=== PATIENT | female | born 1985 ===

== ENCOUNTER 2017-05-27 19:46 | Emergency (ER) | payer OTHER, SELFPAY ==
[2017-05-27 19:46] VITALS: BMI 36.6
[2017-05-27 20:10] VITALS: BP 155/87; PULSE 68; RESP 16; TEMP 98.4; O2SAT 100
--- NOTE | 2017-05-27 20:40 | ED PDOC ---
HPI: Skin/Bite Injury Time Seen by Provider: 05/27/17 20:12 Chief Complaint (Nursing): Abnormal Skin Integrity Chief Complaint (Provider): Rash History Per: Patient, Director Of Casework ([place] Citizen Interpretor at bedside) Onset/Duration Of Symptoms: Days (x1 week) Current Symptoms Are (Timing): Still Present Location Of Injury: Posterior: Back (Lower back) Additional Complaint(s): Tika Bañuelos is a 32 year old female who presents to the emergency department complaining of a painful rash to right buttocks that she noticed 3 days ago. Rash was preceded by a week of itchiness and pain to same area. She denies any fever or chills. No recent travel or known sick contacts. PMD: Rolo Garcia Past Medical History Reviewed: Historical Data, Nursing Documentation, Vital Signs Vital Signs: Last Vital Signs Temp 98.4 F 05/27/17 20:06 Pulse 68 05/27/17 20:06 Resp 16 05/27/17 20:06 BP 155/87 H 05/27/17 20:06 Pulse Ox 100 05/27/17 20:45 - Medical History PMH: HTN, Hypercholesterolemia, Hyperlipidemia - Surgical History Surgical History: Cholecystectomy - Family History Family History: States: No Known Family Hx - Living Arrangements Living Arrangements: With Family - Social History Current smoker - smoking cessation education provided: No Alcohol: Social Drugs: Denies - Home Medications Home Medications: Ambulatory Orders Medication Instructions Recorded Albuterol HFA [Ventolin HFA 90 2 puff IH [id number] PRN #1 pkg 01/13/16 mcg/actuation (8 g)] Famotidine [Pepcid] 40 mg PO DAILY #10 tab 01/13/16 Ibuprofen [Motrin Tab] 800 mg PO Q8 PRN #20 tab 05/27/17 valACYclovir [Valtrex] 1 gm PO TID #21 tab 05/27/17 - Allergies Allergies/Adverse Reactions: Allergies Allergy/AdvReac Type Severity Reaction Status Date / Time No Known Allergies Allergy Verified 05/27/17 20:06 Review of Systems ROS Statement: Except As Marked, All Systems Reviewed And Found Negative Constitutional: Negative for: Fever, Chills Skin: Positive for: Rash (to right buttocks x 3 days) Physical Exam - Reviewed Nursing Documentation Reviewed: Yes Vital Signs Reviewed: Yes - Physical Exam Appears: Positive for: Well, Non-toxic, No Acute Distress Head Exam: Positive for: ATRAUMATIC, NORMAL INSPECTION, NORMOCEPHALIC Skin: Positive for: Normal Color, Warm, Dry, Rash (herpetic, vesicular rash to right buttocks, appearance consistent with herpes zoster) Eye Exam: Positive for: Normal appearance Cardiovascular/Chest: Positive for: Regular Rate, Rhythm Respiratory: Positive for: Normal Breath Sounds Neurologic/Psych: Positive for: Alert, Oriented - Laboratory Results Urine POC: Negative - ECG O2 Sat by Pulse Oximetry: 100 (RA) Pulse Ox Interpretation: Normal Medical Decision Making Medical Decision Making: Initial Impression: 32 year old female with shingles Initial Plan: --Urine --Motrin Tab 600 mg PO --Prescriptions given for Motrin and Valtrex. Patient was advised to avoid any topical creams and keep area clean and dry. Advise follow-up with primary doctor in 2-3 days. Scribe Attestation: Documented by Shai Perez, acting as a scribe for Meaghan COELHO. Provider Scribe Attestation: All medical record entries made by the Scribe were at my direction and personally dictated by me. I have reviewed the chart and agree that the record accurately reflects my personal performance of the history, physical exam, medical decision making, and the department course for this patient. I have also personally directed, reviewed, and agree with the discharge instructions and disposition. Disposition - Clinical Impression Clinical Impression: Shingles - Patient ED Disposition Is Patient to be Admitted: No Counseled Patient/Family Regarding: Diagnosis, Need For Followup, Rx Given - Disposition Referrals: Rolo Garcia MD [Medical Doctor] - Disposition: Routine/Home Disposition Time: 21:09 Condition: STABLE Additional Instructions: Take prescription medications as directed. Follow-up with family doctor in 2-3 days. Prescriptions: Ibuprofen [Motrin Tab] 800 mg PO Q8 PRN #20 tab PRN Reason: Pain, Moderate (4-7) valACYclovir [Valtrex] 1 gm PO TID #21 tab Instructions: Shingles (ED) Forms: [employer] ([place] Citizen) Print Language: GEORGIAN
== END 2017-05-27 21:24 | disposition home or self-care (01) ==
LOC: H.ER 19:46
DX: B02.9 Zoster without complications (principal); E78.00 Pure hypercholesterolemia, unspecified; I10 Essential (primary) hypertension

== ENCOUNTER 2017-07-31 18:53 | Emergency (ER) | payer OTHER ==
[2017-07-31 18:53] VITALS: BMI 36.6
[2017-07-31 19:02] VITALS: BP 150/89; PULSE 75; RESP 18; TEMP 98; O2SAT 98
--- NOTE | 2017-07-31 19:41 | ED PDOC ---
HPI: Psych/Substance Abuse Time Seen by Provider: 07/31/17 19:22 Chief Complaint (Nursing): Female Genitourinary History Per: Patient Additional Complaint(s): Pt. states over the weekend she developed vaginal bleeding which lasted for 4 days and resolved on its own. Yesterday she developed vaginal spotting associated with back. She took 2 HPT which were inconclusive. Denies pelvic pain , dysuria, hematuria, hx of ectopic pregnancies. Past Medical History Reviewed: Historical Data, Nursing Documentation, Vital Signs Vital Signs: Last Vital Signs Temp 98 F 07/31/17 18:59 Pulse 75 07/31/17 18:59 Resp 18 07/31/17 18:59 BP 150/89 07/31/17 18:59 Pulse Ox 98 07/31/17 18:59 - Medical History PMH: HTN, Hypercholesterolemia, Hyperlipidemia Denies: Chronic Kidney Disease - Surgical History Surgical History: Cholecystectomy - Family History Family History: States: Unknown Family Hx - Immunization History Hx Tetanus Toxoid Vaccination: No Hx Influenza Vaccination: No Hx Pneumococcal Vaccination: No - Home Medications Home Medications: Ambulatory Orders Medication Instructions Recorded Albuterol HFA [Ventolin HFA 90 2 puff IH [id number] PRN #1 pkg 01/13/16 mcg/actuation (8 g)] Famotidine [Pepcid] 40 mg PO DAILY #10 tab 01/13/16 Ibuprofen [Motrin Tab] 800 mg PO Q8 PRN #20 tab 05/27/17 valACYclovir [Valtrex] 1 gm PO TID #21 tab 05/27/17 - Allergies Allergies/Adverse Reactions: Allergies Allergy/AdvReac Type Severity Reaction Status Date / Time No Known Allergies Allergy Verified 05/27/17 20:06 Review of Systems ROS Statement: Except As Marked, All Systems Reviewed And Found Negative Genitourinary Female: Positive for: Vaginal Bleeding Musculoskeletal: Positive for: Back Pain Physical Exam - Physical Exam Appears: Positive for: Well, Non-toxic, No Acute Distress Skin: Positive for: Normal Color, Warm. Negative for: Rash Eye Exam: Positive for: Normal appearance ENT: Positive for: Normal ENT Inspection Neck: Positive for: Normal, Painless ROM Cardiovascular/Chest: Positive for: Regular Rate, Rhythm Respiratory: Positive for: CNT, Normal Breath Sounds Gastrointestinal/Abdominal: Positive for: Normal Exam, Bowel Sounds, Soft. Negative for: Tenderness Back: Positive for: Normal Inspection. Negative for: L CVA Tenderness, R CVA Tenderness Neurologic/Psych: Positive for: Alert, Oriented - Laboratory Results Urine POC: Negative Urine dip results: Negative for: Leukocyte Esterase, Blood, Nitrate, Ketones, Glucose, Bilirubin, Protein - ECG O2 Sat by Pulse Oximetry: 98 Medical Decision Making Medical Decision Making: Pt. informed of results. Instructed to f/u with OBGYN for further evaluation of AUB. Disposition - Clinical Impression Clinical Impression: Abnormal uterine bleeding - Patient ED Disposition Is Patient to be Admitted: No - Disposition Referrals: [facility] [Outside] [facility] [Outside] [facility] [Outside] Disposition: Routine/Home Disposition Time: 20:00 Condition: STABLE Instructions: Dysfunctional Uterine Bleeding (ED) Forms: [employer] (Cameroonian) Print Language: KOSOVAN
== END 2017-07-31 20:19 | disposition home or self-care (01) ==
LOC: H.ER 18:53
DX: R93.9 Diagnostic imaging inconclusive due to excess body fat of patient (principal); E78.00 Pure hypercholesterolemia, unspecified; I10 Essential (primary) hypertension

== ENCOUNTER 2018-03-23 17:28 | Emergency (ER) | payer OTHER, SELFPAY ==
[2018-03-23 17:28] VITALS: BMI 36.6
[2018-03-23 17:34] VITALS: BP 118/72; PULSE 94; RESP 16; TEMP 98.9; O2SAT 98
--- NOTE | 2018-03-23 18:48 | ED PDOC ---
HPI: Skin/Bite Injury Time Seen by Provider: 03/23/18 18:14 Chief Complaint (Nursing): Abnormal Skin Integrity Chief Complaint (Provider): Hives History Per: Patient Onset/Duration Of Symptoms: Days Current Symptoms Are (Timing): Still Present Quality Of Symptoms: Itching Additional Complaint(s): 33 year old female presents to the ED for evaluation of hives onset for 2 days. Patient is unknown of the cause of hives. Reports it is itchy and has spread throughout her body. Denies fever, chills or shortness of breath. PMD: [facility] Past Medical History Reviewed: Historical Data, Nursing Documentation, Vital Signs Vital Signs: Last Vital Signs Temp 98.9 F 03/23/18 17:30 Pulse 94 H 03/23/18 17:30 Resp 16 03/23/18 17:30 BP 118/72 03/23/18 17:30 Pulse Ox 98 03/23/18 18:48 - Medical History PMH: HTN, Hypercholesterolemia, Hyperlipidemia Denies: Chronic Kidney Disease - Surgical History Surgical History: Cholecystectomy - Family History Family History: States: Unknown Family Hx - Immunization History Hx Tetanus Toxoid Vaccination: No Hx Influenza Vaccination: No Hx Pneumococcal Vaccination: No - Home Medications Home Medications: Ambulatory Orders Medication Instructions Recorded Albuterol HFA [Ventolin HFA 90 2 puff IH [id number] PRN #1 pkg 01/13/16 mcg/actuation (8 g)] Famotidine [Pepcid] 40 mg PO DAILY #10 tab 01/13/16 Ibuprofen [Motrin Tab] 800 mg PO Q8 PRN #20 tab 05/27/17 valACYclovir [Valtrex] 1 gm PO TID #21 tab 05/27/17 DiphenhydrAMINE [Benadryl] 50 mg PO Q6H PRN #20 cap 03/23/18 Famotidine [Pepcid] 20 mg PO DAILY #5 tab 03/23/18 predniSONE [predniSONE Tab] 20 mg PO DAILY #12 tab 03/23/18 - Allergies Allergies/Adverse Reactions: Allergies Allergy/AdvReac Type Severity Reaction Status Date / Time No Known Allergies Allergy Verified 05/27/17 20:06 Review of Systems ROS Statement: Except As Marked, All Systems Reviewed And Found Negative Constitutional: Negative for: Fever, Chills Respiratory: Negative for: Shortness of Breath Skin: Positive for: Rash Physical Exam - Reviewed Nursing Documentation Reviewed: Yes Vital Signs Reviewed: Yes - Physical Exam Appears: Positive for: Well, Non-toxic, No Acute Distress Head Exam: Positive for: ATRAUMATIC, NORMAL INSPECTION, NORMOCEPHALIC Skin: Positive for: Rash (Various size and shape, erythematous and blanching rash throughout both legs, arms, belly, back) Eye Exam: Positive for: Normal appearance Cardiovascular/Chest: Positive for: Regular Rate, Rhythm. Negative for: Murmur Respiratory: Positive for: Normal Breath Sounds. Negative for: Respiratory Distress Neurologic/Psych: Positive for: Alert, Oriented - ECG O2 Sat by Pulse Oximetry: 98 (RA) Pulse Ox Interpretation: Normal Medical Decision Making Medical Decision Making: Time: 1813 Upon provider evaluation patient is medically stable, and requires no further treatment in the ED at this time. Patient will be discharged with Benadryl 50mg , Pepcid 20mg and predniSONE 20mg for hives. Counseling was provided and all questions were answered regarding diagnosis and need for follow up with clinic. There is agreement to discharge plan. Return if symptoms persist or worsen. Scribe Attestation: Documented by Dakota Phan, acting as a scribe for Leonie Brown PA-C. Provider Scribe Attestation: All medical record entries made by the Scribe were at my direction and personally dictated by me. I have reviewed the chart and agree that the record accurately reflects my personal performance of the history, physical exam, medical decision making, and the department course for this patient. I have also personally directed, reviewed, and agree with the discharge instructions and disposition. Disposition - Clinical Impression Clinical Impression: Urticaria - Patient ED Disposition Is Patient to be Admitted: No - Disposition Disposition: Routine/Home Disposition Time: 18:47 Condition: STABLE Additional Instructions: JUSTIN PATEL, thank you for letting us take care of you today. Your provider was Crissy Barnes MD and you were treated for RASH. The emergency medical care you received today was directed at your acute symptoms. If you were prescribed any medication, please fill it and take as directed. It may take several days for your symptoms to resolve. Return to the Emergency Department if your symptoms worsen, do not improve, or if you have any other problems. Please contact your doctor or call one of the physicians/clinics you have been referred to that are listed on the Patient Visit Information form that is included in your discharge packet. Bring any paperwork you were given at discharge with you along with any medications you are taking to your follow up visit. Our treatment cannot replace ongoing medical care by a primary care provider outside of the emergency department. Thank you for allowing the [facility] team to be part of your care today. If you had an X-Ray or CT scan: A Radiologist will review the ED reading if any change in treatment is needed we will contact you. If you had a blood, urine, or wound culture: It will take several days for the results, if any change in treatment is needed we will contact you. If you had an STI test: It will take 48 hours for the results. Please call after 1 week if you have not heard back. Prescriptions: DiphenhydrAMINE [Benadryl] 50 mg PO Q6H PRN #20 cap PRN Reason: Itching / Pruritus Famotidine [Pepcid] 20 mg PO DAILY #5 tab predniSONE [predniSONE Tab] 20 mg PO DAILY #12 tab Instructions: Hives Forms: [employer] (Occitan) Print Language: ECUADOREAN
== END 2018-03-23 19:18 | disposition home or self-care (01) ==
LOC: SUPCPDRO 17:28 → H.ER 17:28
DX: L50.9 Urticaria, unspecified (principal); I10 Essential (primary) hypertension; E78.00 Pure hypercholesterolemia, unspecified